=== PATIENT | female | born 1975 | race Caucasian/White ===

== ENCOUNTER → 2016-10-11 | Outpatient (CLI) | payer OTHER ==
[~2016-10-11] MED LIST: LEVO100T7 PO; LEVO88TA3 PO; LORA10TA5 PO; METF500T5 PO; MULT-506 PO; POTA99TA PO; PRT/40 PO
[2016-10-11 13:10] LABS: BASO % 1.1 %; BASO ABS # 0.05 K/uL (0-0.2); COMPLETE YES; HEMATOCRIT 40.6 % (37-47); IG% 0.2 %; LYMPH % 29.4 %; LYMPH ABS # 1.33 K/uL (1.2-3.4); MEAN CELL VOLUME 95.8 fL (80-100); MEAN CORPUSCULAR HEMOGLOBIN 31.4 pg (25-34); MEAN CORPUSCULAR HGB CONC 32.8 g/dl (32-36); MEAN PLATELET VOLUME 10.9 fL (7.4-10.4); MONO % 7.5 %; NEUT % 59.8 %; PLATELET COUNT 246 K/uL (130-400); RED BLOOD COUNT 4.24 M/uL (4.2-5.4); WHITE BLOOD COUNT 4.52 K/uL (4.8-10.8)
[2016-10-11 13:22] LABS: ALT/SGPT 13 U/L (12-78); BLOOD UREA NITROGEN 17 mg/dl (7-18); BUN/CREATININE RATIO 23.4 (10-20); CALCIUM 8.4 mg/dl (8.5-10.1); CARBON DIOXIDE 25 mmol/L (21-32); CHLORIDE 107 mmol/L (98-107); CHOLESTEROL 140 mg/dl (0-200); CREATININE 0.74 mg/dl (0.60-1.20); GLUCOSE 91 mg/dl (70-99); POTASSIUM 4.1 mmol/L (3.5-5.1); SODIUM 141 mmol/L (136-145); TRIGLYCERIDES 112 mg/dl (0-150); VERY LOW DENSITY LIPOPROT CALC 22 mg/dl
[2016-10-11 13:31] LABS: ALB/GLOB RATIO 1.2 (0.9-2); ALKALINE PHOSPHATASE 42 U/L (45-117); AST/SGOT 11 U/L (15-37); CHOLESTEROL/HDL RATIO 2.6; HDL CHOLESTEROL 53 mg/dl; LDL CHOLESTEROL CALCULATED 65 mg/dl
[2016-10-11 13:36] LABS: ESTIMATED AVERAGE GLUCOSE 111 mg/dl; HA1C FLAG Normal (Normal)
== END | disposition home or self-care (01) ==
LOC: C.LABPVFM 08:15
PROVIDERS: ATTEND Internal Medicine
DX: R73.03 Prediabetes (principal); R91.8 Other nonspecific abnormal finding of lung field; E88.81 Metabolic syndrome and other insulin resistance

== ENCOUNTER → 2016-12-27 | Outpatient (CLI) | payer OTHER ==
[~2016-12-27] MED LIST changes: +PANT40TA2 PO; -PRT/40 PO
[2016-12-27 13:35] LABS: THYROID STIMULATING HORMONE 1.05 uIu/ml (0.300-4.500)
== END | disposition home or self-care (01) ==
LOC: C.LABPVFM 09:31
PROVIDERS: ATTEND Physician Assistant
DX: E89.0 Postprocedural hypothyroidism (principal)

== ENCOUNTER 2017-02-09 19:59 | Emergency (ER) | payer OTHER ==
[~2017-02-09] VITALS: Ht 167.6 cm; Wt 60.5 kg
[~2017-02-09 19:59] MED LIST changes: -LEVO88TA3 PO; -LORA10TA5 PO; -METF500T5 PO; -MULT-506 PO; -PANT40TA2 PO; -POTA99TA PO
[2017-02-09 20:03] VITALS: TEMP 36.7; Ht 167.6 cm; Wt 60.5 kg
[2017-02-09] MEDS ORDERED: SODIUM CHLORIDE 0.9% 1000ML 1,000 ML IV STA (20:38)
[2017-02-09] MEDS ORDERED: METF500T5 PO (20:55)
[2017-02-09] MEDS ORDERED: POTA99TA PO (20:55)
[2017-02-09] MEDS ORDERED: LEVO88TA3 PO (20:55)
[2017-02-09] MEDS ORDERED: PRT/40 PO (20:55)
[2017-02-09] MEDS ORDERED: MULT-506 PO (20:55)
[2017-02-09] MEDS ORDERED: LORA10TA5 PO (20:55)
[2017-02-09 21:10] LABS: BASO % 0.8 %; BASO ABS # 0.04 K/uL (0-0.2); COMPLETE YES; EOS % 2.1 %; HEMATOCRIT 41.4 % (37-47); IG% 0.2 %; LYMPH ABS # 1.12 K/uL (1.2-3.4); MEAN CELL VOLUME 94.3 fL (80-100); MEAN CORPUSCULAR HEMOGLOBIN 30.8 pg (25-34); MEAN CORPUSCULAR HGB CONC 32.6 g/dl (32-36); MEAN PLATELET VOLUME 10.5 fL (7.4-10.4); MONO % 6.6 %; NEUT % 67.3 %; PLATELET COUNT 246 K/uL (130-400); RED BLOOD COUNT 4.39 M/uL (4.2-5.4); WHITE BLOOD COUNT 4.87 K/uL (4.8-10.8)
[2017-02-09 21:24] LABS: URINE APPEARANCE CLOUDY (CLEAR); URINE BILIRUBIN NEG (NEG); URINE COLOR DK YELLOW; URINE EPITHELIAL CELL AUTO >30 /lpf (0-5); URINE NITRITE NEG (NEG); URINE SPECIFIC GRAVITY 1.036 (1.000-1.030); UROBILINOGEN NEG (NEG); ZZUR CULT IF INDIC CLEAN CATCH NO
[2017-02-09 21:25] LABS: MANUAL MICROSCOPIC REQUIRED? NO; REVIEW REQ? YES
[2017-02-09 21:31] LABS: BUN/CREATININE RATIO 26.1 (10-20); CREATININE 0.79 mg/dl (0.60-1.20)
[2017-02-09 23:30] VITALS: BP 109/69; PULSE 63; O2SAT 97
--- NOTE | 2017-02-10 02:41 | EMERGENCY ROOM VISIT NOTE ---
History Report prepared by Ashwinibgordo: Rubi Curry Under the Supervision of: Dr. Gregorio Manley M.D. First contact with patient: 20:37 Chief Complaint: ABDOMINAL PAIN Stated Complaint: PAIN IN LEFT SIDE UNDER RIBS Nursing Triage Summary: Pt reports she developed severe left upper quadrant abdominal pain at 1430 today. reports nausea, not vomiting. Last BM this AM and was loose. History of Present Illness The patient is a 41 year old female who presents to the Emergency Room with complaints of intermittent LUQ abdominal pain that started around 1400 today. She rates her discomfort as a 5/10 in severity. Movement worsened her pain. She complains of nausea but has not vomited. Her last bowel movement was this morning and loose. She notes she has not eaten since her pain started this afternoon. The patient denies any past history of kidney stones. She has never undergone any abdominal surgeries. She denies any recent known bug bites but states she was eating outside earlier today. The patient notes that after arrival to the Emergency Room her symptoms resolved. She currently has no abdominal pain. Patient denies LOC, headache, fevers, chills, diaphoresis, visual changes, neck pain, chest pain, breathing difficulties, abdominal pain, back pain, melena, hematochezia, urinary symptoms, numbness, weakness, lymphadenopathy, rash, or other complaints. Source of History: patient Onset: 1400 today Position: abdomen (LUQ) Symptom Intensity: 5/10 Timing: intermittent Modifying Factors (Worsening): movement Associated Symptoms: + nausea Review of Systems See HPI for pertinent positives and negatives. A total of ten systems were reviewed and were otherwise negative. 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 (3) Hypothyroidism Nos (4) Intussusception of small intestine (5) Sec Diabetes Mellitus W/Out Mention Compl Not Uncont Or Unsp Surgical Problems: (1) History of thyroidectomy Family History Cancer Diabetes mellitus Heart disease Hypertension Social History Smoking Status: Never Smoker Alcohol Use: none Drug Use: none Marital Status: Housing Status: lives with family Occupation Status: employed Current/Historical Medications Scheduled Levothyroxine Sodium (Levothyroxine Sodium), 88 MCG PO DAILY Loratadine (Claritin), 10 MG PO DAILY Metformin Hcl Er (Glucophage Er), 1,000 MG PO BID Multivitamin (Multivitamin), 1 TAB PO DAILY Pantoprazole (Pantoprazole Sodium), 40 MG PO DAILY Potassium (Potassium), 99 MG PO DAILY Allergies Coded Allergies: Naproxen (Verified Allergy, Intermediate, Itchiness, 02/09/17) Caffeine (Verified Adverse Reaction, Mild, MIGRAINES, NUMBNESS, SWELLING, 09/14/09) Chocolate (Verified Adverse Reaction, Mild, MIGRAINES, NUMBNESS, SWELLING , 09/14/09) Aspartame (Verified Adverse Reaction, Unknown, ADVREAC TO "ARTIFICIAL SWEETENERS" - MIGRAINES, 09/14/09) Physical Exam Vital Signs Date Time Temp Pulse Resp B/P (MAP) Pulse Ox O2 Delivery O2 Flow Rate FiO2 02/09/17 23:30 63 17 109/69 97 02/09/17 22:06 68 24 98 02/09/17 22:00 112/80 02/09/17 21:36 64 17 98 02/09/17 21:30 106/77 02/09/17 21:06 76 22 98 02/09/17 21:01 113/78 02/09/17 20:59 69 15 97 02/09/17 20:38 73 02/09/17 20:36 125/90 02/09/17 20:03 36.7 80 20 121/89 99 Room Air Physical Exam GENERAL: Awake, alert, well-appearing, in no distress HENT: Normocephalic, atraumatic. Oropharynx unremarkable. EYES: Normal conjunctiva. Sclera non-icteric. NECK: Supple. No nuchal rigidity. FROM. No JVD. RESPIRATORY: Clear to auscultation. CARDIAC: Regular rate, normal rhythm. Extremities warm and well perfused. Pulses equal. ABDOMEN: Soft, non-distended. No tenderness to palpation. No rebound or guarding. No masses. RECTAL: Deferred. MUSCULOSKELETAL: Chest examination reveals no tenderness. The back is symmetrical on inspection without obvious abnormality. There is no CVA tenderness to palpation. No joint edema. LOWER EXTREMITIES: Calves are equal size bilaterally and non-tender. No edema. No discoloration. NEURO: Normal sensorium. No sensory or motor deficits noted. SKIN: Small red bug bite on left CVA area. No rash or jaundice noted. Medical Decision & Procedures Laboratory Results 02/09/17 20:30 Red Blood Count 4.39, Mean Corpuscular Volume 94.3, Mean Corpuscular Hemoglobin 30.8, Mean Corpuscular Hemoglobin Concent 32.6, Mean Platelet Volume 10.5, Neutrophils (%) (Auto) 67.3, Lymphocytes (%) (Auto) 23.0, Monocytes (%) (Auto) 6.6, Eosinophils (%) (Auto) 2.1, Basophils (%) (Auto) 0.8, Neutrophils # (Auto) 3.28, Lymphocytes # (Auto) 1.12, Monocytes # (Auto) 0.32, Eosinophils # (Auto) 0.10, Basophils # (Auto) 0.04 02/09/17 20:30 Test 02/09/17 20:30 White Blood Count 4.87 K/uL (4.8-10.8) Red Blood Count 4.39 M/uL (4.2-5.4) Hemoglobin 13.5 g/dL (12.0-16.0) Hematocrit 41.4 % (37-47) Mean Corpuscular Volume 94.3 fL (80-100) Mean Corpuscular Hemoglobin 30.8 pg (25-34) Mean Corpuscular Hemoglobin Concent 32.6 g/dl (32-36) Platelet Count 246 K/uL (130-400) Mean Platelet Volume 10.5 fL (7.4-10.4) Neutrophils (%) (Auto) 67.3 % Lymphocytes (%) (Auto) 23.0 % Monocytes (%) (Auto) 6.6 % Eosinophils (%) (Auto) 2.1 % Basophils (%) (Auto) 0.8 % Neutrophils # (Auto) 3.28 K/uL (1.4-6.5) Lymphocytes # (Auto) 1.12 K/uL (1.2-3.4) Monocytes # (Auto) 0.32 K/uL (0.11-0.59) Eosinophils # (Auto) 0.10 K/uL (0-0.5) Basophils # (Auto) 0.04 K/uL (0-0.2) RDW Standard Deviation 41.2 fL (36.4-46.3) RDW Coefficient of Variation 12.0 % (11.5-14.5) Immature Granulocyte % (Auto) 0.2 % Immature Granulocyte # (Auto) 0.01 K/uL (0.00-0.02) Urine Color DK YELLOW Urine Appearance CLOUDY (CLEAR) Urine pH 5.0 (4.5-7.5) Urine Specific [place] 1.036 (1.000-1.030) Urine Protein NEG (NEG) Urine Glucose (UA) NEG (NEG) Urine Ketones TRACE (NEG) Urine Occult Blood NEG (NEG) Urine Nitrite NEG (NEG) Urine Bilirubin NEG (NEG) Urine Urobilinogen NEG (NEG) Urine Leukocyte Esterase NEG (NEG) Urine WBC (Auto) 1-5 /hpf (0-5) Urine RBC (Auto) 5-10 /hpf (0-4) Urine Hyaline Casts (Auto) 1-5 /lpf (0-5) Urine Epithelial Cells (Auto) >30 /lpf (0-5) Urine Bacteria (Auto) NEG (NEG) Urine Crystals CALCIUM OXALATE (NONE Urine Test NEG (NEG) Anion Gap 9.0 mmol/L (3-11) Est Creatinine Clear Calc Drug Dose 89.4 ml/min Estimated GFR () 109.3 Estimated GFR (Non- 94.3 BUN/Creatinine Ratio 26.1 (10-20) Calcium Level 9.0 mg/dl (8.5-10.1) Total Bilirubin 0.4 mg/dl (0.2-1) Direct Bilirubin 0.1 mg/dl (0-0.2) Aspartate Amino Transf (AST/SGOT) 17 U/L (15-37) Alanine Aminotransferase (ALT/SGPT) 21 U/L (12-78) Alkaline Phosphatase 46 U/L (45-117) Total Protein 6.8 gm/dl (6.4-8.2) Albumin 4.1 gm/dl (3.4-5.0) Lipase 121 U/L (73-393) Laboratory results reviewed by me Medications Administered Medications (Trade) Dose Ordered Sig/Iron Route Start Time Stop Time Status Last Admin Dose Admin Sodium Chloride 1,000 ml @ 999 mls/hr Q1H1M STAT IV 02/09/17 20:38 02/09/17 21:38 DC 02/09/17 21:02 999 MLS/HR ED Course 2037: NSS 1000 ml @ 999 mls/hr IV. 2050: The patient was evaluated in room C12. A complete history and physical exam was performed. 2310: I reevaluated the patient. She is asymptomatic and feeling well. I discussed her results and discharge instructions and she verbalized complete understanding and agreement. Medical Decision Medication Reconciliation: I attest that I have personally reviewed the patient' s current medication list Blood pressure screening: Patient was found to have normal blood pressure on screening and does not require follow-up. Triage Nursing notes reviewed. The patient's presentation and history were concerning for abdominal pain. Etiologies such as diarrheal illness, colic, appendicitis, diverticulitis, obstruction, inflammatory bowel disease, renal colic, PUD, biliary pathology, pancreatitis, mesenteric ischemia, aortic pathology, infections, genitourinary, UTI, perforated viscus, intussusception, as well as others were entertained. The patient was evaluated. She had rather abrupt onset of left upper quadrant pain. This then resolved. She had a benign physical examination. Clinically she looked well and she had no complaints. The patient was hydrated. She had blood work obtained. Her urinalysis, CBC, chemistry panel, LFTs and lipase were all unremarkable. There is some trace blood seen on the urinalysis however the patient is finishing her menstrual cycle. Her symptoms were entertained left upper abdomen. She had no symptoms that would truly consistent with renal colic. The patient was observed. She had no symptoms on reassessment. I discussed conservative management. I discussed the possibility of CT imaging. She feels comfortable with conservative management and using shared decision making the patient will be discharged for close outpatient follow-up will return if she has any recurrent issues.I gave my usual and customary discussion regarding this issue. By the evaluation outlined above other emergent etiologies such as those listed in the differential, as well as others, were deemed relatively unlikely. The patient was educated about the findings as listed above. All questions were answered and the patient was pleased with the treatment. Return instructions were outlined and the patient was discharged in stable condition. The patient was referred to her for follow-up for a recheck of the current condition. Impression Primary Impression: LUQ abdominal pain Scribe Attestation The scribe's documentation has been prepared under my direction and personally reviewed by me in its entirety. I confirm that the note above accurately reflects all work, treatment, procedures, and medical decision making performed by me. Departure Information Dispostion Home / Self-Care Referrals RV. De Paz MD (PCP) Patient Instructions My [facility] Additional Instructions ABDOMINAL PAIN INSTRUCTIONS: Ibuprofen(Motrin, Advil) may be used for fever or pain. Use 600mg every six hours as needed. Take with food. Avoid using more than 2400mg in a 24 hour period. Do not use 2400mg per day for more than three consecutive days without physician direction. Prolonged inappropriate use can lead to stomach upset or ulcers. (AND/OR) Acetaminophen(Tylenol) may be used for fever or pain. Use 1000mg every six hours as needed. Avoid using more than 4000mg in a 24 hour period. Rest and drink plenty of fluids as tolerated. Slow sips of water or sports drinks are recommended instead of large amounts all at once. Continue current medications. Once your stomach is settled start with a clear liquid diet (jello, soup broth, etc.) and then advance as tolerated. You should avoid full, heavy meals for about 24 hrs from the time your symptoms resolved. Return to the ER immediately for worsening or persistent abdominal pain, vomiting, fevers, chest pains, difficulty breathing, black or bloody stools, worsening of your condition, or as needed. Follow up with your primary physician in 2-3 days for a recheck of your current condition.
== END 2017-02-09 23:30 | disposition home or self-care (01) ==
LOC: C.EDB 20:00 → C.EDC 23:30
DX: R10.12 Left upper quadrant pain (principal); Q23.1 Congenital insufficiency of aortic valve; E03.9 Hypothyroidism, unspecified; E11.9 Type 2 diabetes mellitus without complications; Z80.9 Family history of malignant neoplasm, unspecified; Z83.3 Family history of diabetes mellitus; Z82.49 Family history of ischemic heart disease and other diseases of the circulatory system; Z79.899 Other long term (current) drug therapy

== ENCOUNTER → 2017-02-20 | Outpatient (CLI) | payer OTHER ==
[~2017-02-20] MED LIST changes: -LEVO100T7 PO; +LEVO88TA3 PO; +LORA10TA5 PO; +METF500T5 PO; +MULT-506 PO; +POTA99TA PO; +PRT/40 PO
[2017-02-20 15:34] LABS: LYME DISEASE AB IGG POS (NEG); LYME DISEASE AB IGM POS (NEG)
[2017-02-26 11:30] LABS: 18KDIGG BAND REACTIVE (NONREACTIVE); 23KDIGG BAND REACTIVE (NONREACTIVE); 23KDIGM BAND REACTIVE (NONREACTIVE); 28KDIGG BAND REACTIVE (NONREACTIVE); 30KDIGG BAND NONREACTIVE (NONREACTIVE); 39KDIGG BAND REACTIVE (NONREACTIVE); 39KDIGM BAND NONREACTIVE (NONREACTIVE); 41KDIGG BAND REACTIVE (NONREACTIVE); 41KDIGM BAND NONREACTIVE (NONREACTIVE); 45KDIGG BAND REACTIVE (NONREACTIVE); 58KDIGG BAND REACTIVE (NONREACTIVE); 66KDIGG BAND NONREACTIVE (NONREACTIVE); 93KDIGG BAND REACTIVE (NONREACTIVE)
== END | disposition home or self-care (01) ==
LOC: C.LAB1850 12:08
PROVIDERS: ATTEND Physician Assistant
DX: A69.20 Lyme disease, unspecified (principal)

== ENCOUNTER → 2017-06-02 | Outpatient (CLI) | payer OTHER ==
[2017-06-04 01:47] LABS: CHLAMYDIA TRACH RNA*** NOT DETECTED (NOT DETECTED); GC (NEIS GONORRHOEAE)RNA** NOT DETECTED (NOT DETECTED)
== END | disposition home or self-care (01) ==
LOC: C.LABSPEC 13:26
PROVIDERS: ATTEND Physician Assistant
DX: Z30.431 Encounter for routine checking of intrauterine contraceptive device (principal)

== ENCOUNTER → 2017-07-06 | Outpatient (CLI) | payer OTHER ==
[~2017-07-06] MED LIST changes: +PANT40TA2 PO; -PRT/40 PO
[2017-07-06 14:24] LABS: THYROID STIMULATING HORMONE 2.15 uIu/ml (0.300-4.500)
[2017-07-06 14:41] LABS: ESTIMATED AVERAGE GLUCOSE 114 mg/dl; HA1C FLAG Normal (Normal)
== END | disposition home or self-care (01) ==
LOC: C.LABPVFM 08:40
PROVIDERS: ATTEND Internal Medicine
DX: E89.0 Postprocedural hypothyroidism (principal); R73.03 Prediabetes

== ENCOUNTER → 2017-08-20 | Outpatient (CLI) | payer OTHER ==
[~2017-08-20] MED LIST changes: -LORA10TA5 PO; +LORA10TA6 PO
--- NOTE | 2017-08-20 12:13 | DIAGNOSTIC IMAGING REPORT ---
LEFT FIFTH FINGER 3 VIEWS CLINICAL HISTORY: Swelling. FINDINGS: 3 views of the left fifth finger are obtained. No prior studies are available for comparison at the time of dictation. The Skeletal structures are well mineralized. No fracture is seen. The fifth metacarpophalangeal and interphalangeal joints appear maintained. Spurring is seen along the tuft of the fifth distal phalanx. Mild soft tissue swelling is present in the fifth finger. IMPRESSION: Mild soft tissue swelling with no acute bony abnormality identified in the left fifth finger. Electronically signed by: Dereje Ladd M.D. 08/20/2017 12:12 PM Dictated Date/Time: 08/20/2017 12:11 PM
== END | disposition home or self-care (01) ==
LOC: C.RAD1850 11:52
PROVIDERS: ATTEND Nurse Practitioner Adult Health
DX: M79.89 Other specified soft tissue disorders (principal)

== ENCOUNTER 2017-10-22 13:15 | Emergency (ER) | payer OTHER ==
[~2017-10-22] VITALS: Ht 160 cm; Wt 65.0 kg
[2017-10-22 13:17] VITALS: Ht 160 cm; Wt 65.0 kg
--- NOTE | 2017-10-22 14:08 | EMERGENCY ROOM VISIT NOTE ---
History Report prepared by Luis Angel: Ish Harris Under the Supervision of: Dr. Anita Bolden D.O. First contact with patient: 13:57 Chief Complaint: ABDOMINAL PAIN Stated Complaint: PAIN IN ABDOMIN Nursing Triage Summary: c/o lower abd pain and told to come to the ED by PMD office couple days ago with heavy bleeding with mirena and had u/s and told her uterine linning was thin pt has been taking motrin 600mg for this and pain is getting worse History of Present Illness The patient is a 42 year old female who presents to the Emergency Room with complaints of on and off abdominal pain for the past three weeks. She describes the pain as a sharp pain. She also reports that she has been having some vaginal bleeding which is abnormal since she usually does not have a menstrual cycle due to having a Mirena. She states that she has talked to her [facility]X OPERATOR, and they did an ultrasound, and everything was fine. The patient states that different positions make the pain better, though it changes, and she states that she has never had pain like this before. She denies any change in bowel movements, difficulty urinating, fever, chills, change in medications, change in foods, pain with intercourse, and change in exercises. She has a history of a thyroidectomy, and she states that she has not had any changes in her thyroid medications for a long time. She denies any family history of GI problems or kidney stones. 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 Source of History: patient Onset: three weeks ago Position: abdomen Quality: sharp Timing: other (on and off) Modifying Factors (Relieving): other (different positions) Associated Symptoms: No fevers, No chills Note: Associated symptoms: Vaginal bleeding Review of Systems See HPI for pertinent positives & negatives. A total of 10 systems reviewed and were otherwise negative. 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 (3) Hypothyroidism Nos (4) Intussusception of small intestine (5) Sec Diabetes Mellitus W/Out Mention Compl Not Uncont Or Unsp Surgical Problems: (1) History of thyroidectomy Family History Cancer Diabetes mellitus Heart disease Hypertension Social History Smoking Status: Never Smoker Alcohol Use: none Drug Use: none Marital Status: Housing Status: lives with family Occupation Status: employed Current/Historical Medications Scheduled Levothyroxine Sodium (Levothyroxine Sodium), 88 MCG PO DAILY Loratadine (Claritin), 10 MG PO DAILY Metformin Hcl Er (Glucophage Er), 1,000 MG PO BID Multivitamin (Multivitamin), 1 TAB PO DAILY Pantoprazole (Pantoprazole Sodium), 40 MG PO DAILY Potassium (Potassium), 99 MG PO DAILY Allergies Coded Allergies: Naproxen (Verified Allergy, Intermediate, Itchiness, 10/22/17) Caffeine (Verified Adverse Reaction, Mild, MIGRAINES, NUMBNESS, SWELLING, 10/22/17) Chocolate (Verified Adverse Reaction, Mild, MIGRAINES, NUMBNESS, SWELLING , 10/22/17) Aspartame (Verified Adverse Reaction, Unknown, ADVREAC TO "ARTIFICIAL SWEETENERS" - MIGRAINES, 10/22/17) Physical Exam Vital Signs Date Time Temp Pulse Resp B/P (MAP) Pulse Ox O2 Delivery O2 Flow Rate FiO2 10/22/17 18:36 36.7 68 18 133/77 99 10/22/17 17:38 68 18 133/77 10/22/17 15:27 64 16 118/79 10/22/17 13:17 36.7 98 16 145/90 99 Physical Exam GENERAL: alert, well appearing, well nourished, no distress, non-toxic EYE EXAM: normal conjunctiva, PERRL and EOM's grossly intact OROPHARYNX: no exudate, no erythema, lips, buccal mucosa, and tongue normal and mucous membranes are moist NECK: supple, no nuchal rigidity, no adenopathy, non-tender LUNGS: Clear to auscultation. Normal chest wall mechanics HEART: no murmurs, S1 normal and S2 normal ABDOMEN: Minimal suprapubic tenderness. Abdomen soft, normo-active bowel sounds , no masses, no rebound or guarding. BACK: Back is symmetrical on inspection and there is no deformity, no midline tenderness, no CVA tenderness. SKIN: no rashes and no bruising UPPER EXTREMITIES: upper extremities are grossly normal. LOWER EXTREMITIES: No pitting edema. NEURO EXAM: Normal sensorium, cranial nerves II-XII grossly intact, normal speech, no gross weakness of arms, no gross weakness of legs. Medical Decision & Procedures ER Provider Diagnostic Interpretation: Radiology results have been interpreted by the radiologist and reviewed by me. CT SCAN OF THE ABDOMEN AND PELVIS WITH IV CONTRAST CLINICAL HISTORY: Lower abdominal pain. COMPARISON STUDY: Abdominal CT dated 07/26/2014. Chest CT dated 07/22/2014. TECHNIQUE: Following the IV administration of 93 cc of Optiray 320, CT scan of the abdomen and pelvis is performed from the lung bases to the proximal femora. Images are reviewed in the axial, sagittal, and coronal planes. IV contrast was administered without complication. A dose lowering technique was utilized adhering to the principles of ALARA. CT DOSE: 311.91 mGy.cm FINDINGS: Lung bases: The heart is normal in size and without pericardial effusion. There are at least 9 pulmonary and pleural-based nodules identified at both lung bases. The largest is in the right lower lobe seen on image #1 and measures up to 7 mm. These are not significantly changed dating back to 03/29/[address] and are of doubtful significance given long-term stability. No new pulmonary nodule is clearly seen. The lung bases are otherwise clear noting dependent atelectasis. Liver: The contrast-enhanced liver is normal in size, contour, and attenuation. There is no intrahepatic biliary ductal dilatation. The hepatic veins and portal veins are patent. Gallbladder: Unremarkable. Spleen: Normal in size and attenuation. Pancreas: Unremarkable. Adrenal glands: Unremarkable. Kidneys: The contrast enhanced kidneys are normal in size and without hydronephrosis. The kidneys enhance symmetrically. Abdominal vasculature: The abdominal aorta is normal in course and caliber. Bowel: There is moderate colonic fecal retention. No bowel obstruction is identified. The appendix is well-visualized and normal. Peritoneum: There is no intraperitoneal free air or abdominal ascites. There is a fat-containing umbilical hernia. Lymphadenopathy: None. Pelvic viscera: The bladder, uterus, and adnexa are normal as visualized noting an intrauterine device in place. There are bilateral ovarian follicles. Skeletal structures: No lytic or blastic lesions are seen. IMPRESSION: There are no acute infectious or inflammatory findings in the abdomen or pelvis. Electronically signed by: Dereje Ladd M.D. 10/22/2017 6:02 PM Dictated Date/Time: 10/22/2017 5:56 PM Laboratory Results 10/22/17 14:20 Red Blood Count 4.34, Mean Corpuscular Volume 93.1, Mean Corpuscular Hemoglobin 31.1, Mean Corpuscular Hemoglobin Concent 33.4, Mean Platelet Volume 9.9, Neutrophils (%) (Auto) 72.4, Lymphocytes (%) (Auto) 19.5, Monocytes (%) (Auto) 5.9, Eosinophils (%) (Auto) 1.7, Basophils (%) (Auto) 0.3, Neutrophils # (Auto) 4.39, Lymphocytes # (Auto) 1.18, Monocytes # (Auto) 0.36, Eosinophils # (Auto) 0.10, Basophils # (Auto) 0.02 10/22/17 14:20 Test 10/22/17 14:15 10/22/17 14:20 Urine Color YELLOW Urine Appearance CLEAR (CLEAR) Urine pH 6.5 (4.5-7.5) Urine Specific [place] 1.009 (1.000-1.030) Urine Protein NEG (NEG) Urine Glucose (UA) NEG (NEG) Urine Ketones NEG (NEG) Urine Occult Blood NEG (NEG) Urine Nitrite NEG (NEG) Urine Bilirubin NEG (NEG) Urine Urobilinogen NEG (NEG) Urine Leukocyte Esterase NEG (NEG) White Blood Count 6.06 K/uL (4.8-10.8) Red Blood Count 4.34 M/uL (4.2-5.4) Hemoglobin 13.5 g/dL (12.0-16.0) Hematocrit 40.4 % (37-47) Mean Corpuscular Volume 93.1 fL (80-100) Mean Corpuscular Hemoglobin 31.1 pg (25-34) Mean Corpuscular Hemoglobin Concent 33.4 g/dl (32-36) Platelet Count 263 K/uL (130-400) Mean Platelet Volume 9.9 fL (7.4-10.4) Neutrophils (%) (Auto) 72.4 % Lymphocytes (%) (Auto) 19.5 % Monocytes (%) (Auto) 5.9 % Eosinophils (%) (Auto) 1.7 % Basophils (%) (Auto) 0.3 % Neutrophils # (Auto) 4.39 K/uL (1.4-6.5) Lymphocytes # (Auto) 1.18 K/uL (1.2-3.4) Monocytes # (Auto) 0.36 K/uL (0.11-0.59) Eosinophils # (Auto) 0.10 K/uL (0-0.5) Basophils # (Auto) 0.02 K/uL (0-0.2) RDW Standard Deviation 41.6 fL (36.4-46.3) RDW Coefficient of Variation 12.3 % (11.5-14.5) Immature Granulocyte % (Auto) 0.2 % Immature Granulocyte # (Auto) 0.01 K/uL (0.00-0.02) Anion Gap 8.0 mmol/L (3-11) Est Creatinine Clear Calc Drug Dose 88.0 ml/min Estimated GFR () 111.9 Estimated GFR (Non- 96.6 BUN/Creatinine Ratio 20.6 (10-20) Calcium Level 9.0 mg/dl (8.5-10.1) Total Bilirubin 0.4 mg/dl (0.2-1) Aspartate Amino Transf (AST/SGOT) 10 U/L (15-37) Alanine Aminotransferase (ALT/SGPT) 15 U/L (12-78) Alkaline Phosphatase 59 U/L (45-117) Total Protein 7.0 gm/dl (6.4-8.2) Albumin 3.7 gm/dl (3.4-5.0) Globulin 3.3 gm/dl (2.5-4.0) Albumin/Globulin Ratio 1.1 (0.9-2) Lipase 119 U/L (73-393) Thyroid Stimulating Hormone (TSH) 1.250 uIu/ml (0.300-4.500) Human Chorionic Gonadotropin, Qual NEG (NEG) Lyme Disease IgG Antibody POS (NEG) Laboratory results per my review. ED Course 1357: The patient was evaluated in room C2. A complete history and physical exam was performed. 1816: Upon reevaluation, the patient is feeling better. I discussed the findings and the treatment plan with the patient. She verbalizes agreement and understanding. She was discharged home. Medical Decision Differential diagnosis: Etiologies such as appendicitis, diverticulitis, PUD, biliary pathology, UTI, pancreatitis, obstruction, mesenteric ischemia, aortic pathology, infections, inflammatory bowel disease, renal colic, as well as others were entertained. Patient well-appearing here, no recurrence of pain, labs and imaging reassuring. Discussed with her possible component of constipation and encouraged adequate hydration and fiber intake as an outpatient. Discussed other [id number] medications patient could use. Discussed follow-up with [facility] OPERATOR regarding the atypical bleeding despite the recent negative outpatient pelvic ultrasound. Discussed follow-up regarding her preliminary positive Lyme , discussed her labs and imaging results, discussed symptoms to watch and return for, she verbalized understanding was agreeable with plan. Patient was stable vital signs throughout, tolerating p.o. and well-appearing at time of discharge. Doubt occult GI bleed, mesenteric ischemia, diverticulitis, perforation, intussusception, bowel obstruction, ureterolithiasis, bacteremia/ sepsis, ectopic, or TOA. Medication Reconcilliation Current Medication List: was personally reviewed by me Blood Pressure Screening Patient's blood pressure: Elevated blood pressure Blood pressure disposition: Elevated BP felt to be situational Impression Primary Impression: LLQ abdominal pain Scribe Attestation The scribe's documentation has been prepared under my direction and personally reviewed by me in its entirety. I confirm that the note above accurately reflects all work, treatment, procedures, and medical decision making performed by me. Departure Information Dispostion Home / Self-Care Referrals RV. De Paz MD (PCP) Forms Call Back Authorization, HOME CARE DOCUMENTATION FORM, IMPORTANT VISIT INFORMATION Patient Instructions My [facility]Than[employer] Additional Instructions Please make sure you are drinking plenty of water and getting enough fiber in your diet. You may consider using MiraLAX daily to help sure you are having regular bowel movements. Please follow-up with your family doctor regarding her pain. Of note, the preliminary result of your Lyme testing here was positive, it will take several days for the full panel to be resulted, please follow-up with your family doctor regarding this also. Please continue your routine follow-up with [facility] and if you have any more abnormal vaginal bleeding , we see them again. If you have any worsening pain, noticed black or bloody stools, develop fevers or chills, nausea or vomiting, dizziness, difficulty urinating, or you have any other new concerns, please return the emergency room.
[2017-10-22] MEDS ORDERED: OPTIRAY 320 IV PRN (14:15)
[2017-10-22 14:43] LABS: BASO % 0.3 %; BASO ABS # 0.02 K/uL (0-0.2); EOS % 1.7 %; HEMATOCRIT 40.4 % (37-47); HEMOGLOBIN 13.5 g/dL (12.0-16.0); IG# 0.01 K/uL (0.00-0.02); LYMPH % 19.5 %; LYMPH ABS # 1.18 K/uL (1.2-3.4); MEAN CELL VOLUME 93.1 fL (80-100); MEAN CORPUSCULAR HEMOGLOBIN 31.1 pg (25-34); MEAN CORPUSCULAR HGB CONC 33.4 g/dl (32-36); MEAN PLATELET VOLUME 9.9 fL (7.4-10.4); MONO % 5.9 %; MONO ABS # 0.36 K/uL (0.11-0.59); NEUT % 72.4 %; NEUT ABS # 4.39 K/uL (1.4-6.5); PLATELET COUNT 263 K/uL (130-400); RED CELL DISTRIBUTION WIDTH CV 12.3 % (11.5-14.5); RED CELL DISTRIBUTION WIDTH SD 41.6 fL (36.4-46.3); WHITE BLOOD COUNT 6.06 K/uL (4.8-10.8)
[2017-10-22 14:59] LABS: ALBUMIN 3.7 gm/dl (3.4-5.0); CREATININE 0.77 mg/dl (0.60-1.20); POTASSIUM 3.8 mmol/L (3.5-5.1)
--- NOTE | 2017-10-22 18:03 | DIAGNOSTIC IMAGING REPORT ---
CT SCAN OF THE ABDOMEN AND PELVIS WITH IV CONTRAST CLINICAL HISTORY: Lower abdominal pain. COMPARISON STUDY: Abdominal CT dated 07/26/2014. Chest CT dated 07/22/2014. TECHNIQUE: Following the IV administration of 93 cc of Optiray 320, CT scan of the abdomen and pelvis is performed from the lung bases to the proximal femora. Images are reviewed in the axial, sagittal, and coronal planes. IV contrast was administered without complication. A dose lowering technique was utilized adhering to the principles of ALARA. CT DOSE: 311.91 mGy.cm FINDINGS: Lung bases: The heart is normal in size and without pericardial effusion. There are at least 9 pulmonary and pleural-based nodules identified at both lung bases. The largest is in the right lower lobe seen on image #1 and measures up to 7 mm. These are not significantly changed dating back to 03/29/[address] and are of doubtful significance given long-term stability. No new pulmonary nodule is clearly seen. The lung bases are otherwise clear noting dependent atelectasis. Liver: The contrast-enhanced liver is normal in size, contour, and attenuation. There is no intrahepatic biliary ductal dilatation. The hepatic veins and portal veins are patent. Gallbladder: Unremarkable. Spleen: Normal in size and attenuation. Pancreas: Unremarkable. Adrenal glands: Unremarkable. Kidneys: The contrast enhanced kidneys are normal in size and without hydronephrosis. The kidneys enhance symmetrically. Abdominal vasculature: The abdominal aorta is normal in course and caliber. Bowel: There is moderate colonic fecal retention. No bowel obstruction is identified. The appendix is well-visualized and normal. Peritoneum: There is no intraperitoneal free air or abdominal ascites. There is a fat-containing umbilical hernia. Lymphadenopathy: None. Pelvic viscera: The bladder, uterus, and adnexa are normal as visualized noting an intrauterine device in place. There are bilateral ovarian follicles. Skeletal structures: No lytic or blastic lesions are seen. IMPRESSION: There are no acute infectious or inflammatory findings in the abdomen or pelvis. Electronically signed by: Dereje Ladd M.D. 10/22/2017 6:02 PM Dictated Date/Time: 10/22/2017 5:56 PM
[2017-10-22 18:36] VITALS: BP 133/77; PULSE 68; TEMP 36.7; O2SAT 99
== END 2017-10-22 18:37 | disposition home or self-care (01) ==
LOC: C.EDB 13:17 → C.EDC 18:37
DX: R10.32 Left lower quadrant pain (principal); E03.9 Hypothyroidism, unspecified; E11.9 Type 2 diabetes mellitus without complications; Q23.1 Congenital insufficiency of aortic valve; Z80.9 Family history of malignant neoplasm, unspecified; Z83.3 Family history of diabetes mellitus; Z82.49 Family history of ischemic heart disease and other diseases of the circulatory system; Z79.899 Other long term (current) drug therapy; Z88.8 Allergy status to other drugs, medicaments and biological substances; Z91.018 Allergy to other foods

== ENCOUNTER → 2017-11-05 | Outpatient (CLI) | payer OTHER ==
--- NOTE | 2017-11-05 11:27 | DIAGNOSTIC IMAGING REPORT ---
KUB CLINICAL HISTORY: K59.00, R10.9 ABDOMINAL PAIN AND BLOATING COMPARISON STUDY: 07/21/2014 FINDINGS: There is no pathologic bowel dilatation. There are no calcifications suspicious for renal calculi. An IUD is visualized. IMPRESSION: No evidence of pathologic bowel dilatation Electronically signed by: Kofi Bhatia M.D. 11/05/2017 11:26 AM Dictated Date/Time: 11/05/2017 11:25 AM
== END | disposition home or self-care (01) ==
LOC: C.RAD1850 11:04
PROVIDERS: ATTEND Nurse Practitioner Adult Health
DX: K59.00 Constipation, unspecified (principal); R10.9 Unspecified abdominal pain

== ENCOUNTER → 2017-11-12 | Outpatient (CLI) | payer OTHER ==
--- NOTE | 2017-11-12 09:44 | DIAGNOSTIC IMAGING REPORT ---
GALLBLADDER-ABD LIMITED CLINICAL HISTORY: K82.4 Gallbladder [id number] Abdominal [id number] Abdominal bloating COMPARISON STUDY: 07/13/2015 FINDINGS: The pancreas appeared normal as visualized. The liver appears sonographically normal. There is no right-sided hydronephrosis. There was no ductal dilatation. The common bile duct measured 4 mm. In addition to multiple gallbladder polyps, there is a 5 mm echogenic focus which appear to roll. This suggests a calculus. IMPRESSION: 1. Multiple gallbladder polyps including a cluster of polyps measuring 16 mm in aggregate. Given the size of the gallbladder polyps, surgical consultation should be considered. 2. Small gallbladder calculus 3. No ductal dilatation Electronically signed by: Kofi Bhatia M.D. 11/12/2017 9:42 AM Dictated Date/Time: 11/12/2017 9:36 AM
== END | disposition home or self-care (01) ==
LOC: C.ULTR 09:11
PROVIDERS: ATTEND Nurse Practitioner Adult Health
DX: K82.4 Cholesterolosis of gallbladder (principal); R14.0 Abdominal distension (gaseous); R10.9 Unspecified abdominal pain

== ENCOUNTER → 2017-11-26 | Outpatient (CLI) | payer OTHER | END | disposition home or self-care (01) | LOC: C.LAB1850 11:54 | PROVIDERS: ATTEND Internal Medicine Infectious Disease | DX: C73 Malignant neoplasm of thyroid gland (principal); R53.83 Other fatigue ==

== ENCOUNTER → 2017-12-26 | Outpatient (CLI) | payer OTHER ==
[2017-12-26 13:37] LABS: HEMOGLOBIN A1C 5.7 % (4.5-5.6)
== END | disposition home or self-care (01) ==
LOC: C.LAB1850 11:23
PROVIDERS: ATTEND Internal Medicine
DX: R73.03 Prediabetes (principal)

== ENCOUNTER → 2018-03-29 | Outpatient (CLI) | payer OTHER ==
[~2018-03-29] MED LIST changes: +CHOL1000 PO; +CYAN100020 PO; +ERGO500037 PO; +LEVO1IUD2 VAGRING; +LINA72CA PO; -MULT-506 PO; +OXYC-57 PO
== END | disposition home or self-care (01) ==
LOC: C.PAPS 14:48
PROVIDERS: ATTEND Obstetrics & Gynecology
DX: Z12.4 Encounter for screening for malignant neoplasm of cervix (principal)